=== PATIENT | female | born 1945 | race African-American/Black ===

== ENCOUNTER 2025-04-03 20:30 | Emergency (ER) | payer OTHER, MEDICAID ==
[~2025-04-03] VITALS: Ht 175.3 cm; Wt 115.0 kg
[2025-04-03 20:37] VITALS: PULSE 102; RESP 26; O2SAT 99
[2025-04-03] MEDS ORDERED: NOREPINEPHRINE 8MG/250ML PMX 250 ML IV ONE ×3 (20:56→23:00)
[2025-04-03] MEDS ORDERED: VANCOMYCIN 1.5GM/250ML 250 ML IV SCH (21:15)
[2025-04-03] MEDS ORDERED: ACETAMINOPHEN 650MG SUPP PR PRN (21:15)
[2025-04-03] MEDS ORDERED: ACETAMINOPHEN 650MG/20.3ML UDC NG PRN (21:15)
[2025-04-03] MEDS ORDERED: EPINEPHRINE 10 MG in SODIUM CHLORIDE 0.9% 240 ML IV PRN ×2 (21:30→22:00)
[2025-04-03] MEDS: PIPERACILLIN/TAZO 3.375G/50ML 50 ML IV SCH (21:37)
[2025-04-03 21:40] LABS: BG BASE EXCESS -19.1 mmol/L (-2.0-3.0); BG CARBOXYHEMOGLOBIN 0.3 % (0.5-1.5); BG DEOXYHEMOGLOBIN 0.7 % (0.0-5.0); BG FRACTION INSPIRED OXYGEN 100; BG HCO3 ACT 9.7 mmol/L (21.0-28.0); BG METHEMOGLOBIN 1.0 % (0.5-1.5); BG OXYGEN SATURATION 99.3 % (94.0-98.0); BG OXYHEMOGLOBIN 98.0 % (94.0-98.0); BG PCO2 33.1 mmHg (32.0-45.0); BG PEEP (cmH2O) 5.0 cmH2O; BG PH 7.083 (7.350-7.450); BG PO2 203.5 mmHg (83.0-108.0); BG SAMPLE SITE LEFT RADIAL; BG TIDAL VOLUME(mL) 500.0 mL; BG TOTAL HEMOGLOBIN 11.7 g/dL (12.0-16.0); BG VENT MODE VENT - AC; BG VENT RATE 24.0 set
[2025-04-03] MEDS: SODIUM CHLORIDE 0.9% 1,000 ML IV ONE (21:43)
[2025-04-03 21:53] LABS: HEMATOCRIT. 35.2 % (36.0-48.0); HEMOGLOBIN. 10.1 g/dL (12.0-16.0); MEAN PLATELET VOLUME 9.5 fl (7.4-10.4); PLATELET 190 x1000/uL (130-400); RED BLOOD CELL COUNT 3.40 mill/uL (4.2-5.4); RED CELL DISTRIBUTION WIDTH 23.2 % (11.6-14.6)
[2025-04-03 22:01] VITALS: PULSE 88; RESP 25; O2SAT 99
[2025-04-03 22:07] LABS: CREATININE 1.0 mg/dL (0.6-1.0)
[2025-04-03 22:08] LABS: UREA NITROGEN BLOOD 16 mg/dL (9-23)
[2025-04-03 22:09] LABS: ASPARTATE AMINOTRANSFERASE 325 IU/L (<34)
[2025-04-03 22:10] LABS: BILIRUBIN DIRECT 0.2 mg/dL (<=3.0); BILIRUBIN TOTAL 0.5 mg/dL (0.1-1.0); PROTEIN TOTAL 5.8 g/dL (6.0-8.3)
[2025-04-03 22:17] LABS: EOSINOPHILS % MANUAL 2.0 % (0.0-5.0); LYMPHOCYTES % MANUAL 38.0 % (20.0-60.0); MONOCYTES % MANUAL 4.0 % (2.0-8.0); NEUTROPHILS % MANUAL 56.0 % (45.0-75.0); NUCLEATED RED BLOOD CELLS 9 /100 WBC; PLATELET ESTIMATE NORMAL
[2025-04-03 22:25] LABS: TROPONIN I HIGH SENSITIVITY 119 ng/L (3.0-34)
[2025-04-03 22:26] LABS: PHOSPHORUS 8.0 mg/dL (2.5-4.9)
[2025-04-03] MEDS ORDERED: MORPHINE SULFATE/PF 1 MG/ML 100 MG in BAG 1 EACH IV PRN (23:00)
[2025-04-03 23:17] VITALS: TEMP 36.4
[2025-04-03] MEDS: LORAZEPAM 2MG/ML UD SYRINGE IV NR (23:20)
[2025-04-03] MEDS: MORPHINE SULFATE 4 MG/ML INJ (FOR IV/IM USE) IV ONE (23:28)
[2025-04-03] MEDS: MORPHINE (DRIP)100 MG in DEXT 5% WATER 100 ML IV PRN (23:59)
[2025-04-04 00:03] VITALS: BP 0/0; PULSE 0; RESP 0; O2SAT 0
== END 2025-04-04 02:53 ==
LOC: ER 20:30 → CMPBEDREQ 04-04 07:29
DX: I46.9 Cardiac arrest, cause unspecified (principal); E11.9 Type 2 diabetes mellitus without complications; I11.0 Hypertensive heart disease with heart failure; I25.2 Old myocardial infarction; Z88.8 Allergy status to other drugs, medicaments and biological substances
CPT/HCPCS: 99291; 96365; 96375; 71045; 96367; 80076; 80048; 82962; 83880; 83605; 83735; 84100; 85025; 87040; 87186; 84484; 87077; 36415; 84145; 82805; 82375; 31720; 99292; 93005; 36600; J3373; J3490 ×2; J2060; J2543; J2270; J7050; J7030; 94002; 94070; 94664